=== PATIENT | male | born 1980 | race Caucasian/White ===

== ENCOUNTER 2024-07-01 01:00 | Emergency (ER) | payer BC, SELFPAY ==
[2024-07-01 01:11] VITALS: BP 141/96; PULSE 74; RESP 16; TEMP 36.6; O2SAT 97; BMI 32.1
--- NOTE | 2024-07-01 01:14 | ED.GENADULT ---
HPI - General Adult General Chief complaint: Headache/Migraine Stated complaint: headache, stiff neck Time Seen by Provider: 07/01/24 01:11 CDT History of Present Illness HPI narrative: pt arrives with stiff neck for 3-4 days. now 24 hours of headache on right side with R ear sensitivity. tylenol q4h and advil last at 2100. pain increases with laying down. 44-year-old man presenting to the emergency department concern of headache and neck stiffness. Hurts to flex next to the right in particular. Tenderness though also in his right ear trying to clean at the today. Headache really started somewhat abruptly last night and has continued. He is just not able to sleep and looking for some relief. He describes pain that comes over the right side of his scalp posterior to anterior stopping somewhere in the forehead. Mildly light sensitive. No rashes. Neck pain not entirely unusual bouncing around in [employer] well [place] and having to look about, but headache is what is keeping him awake and concerning. Related Data Home Medications ?Medication ?Instructions ?Recorded ?Confirmed No Known Home Medications 07/01/24 07/01/24 Previous Rx's ?Medication ?Instructions ?Recorded diclofenac sodium 3 % topical gel 1 applic topical BID PRN #100 grams 07/01/24 Allergies Allergy/AdvReac Type Severity Reaction Status Date / Time No Known Drug Allergies Allergy Verified 07/01/24 01:14 CDT Review of Systems Status of ROS: Reports: 6 or more systems reviewed and unremarkable except as noted in History and below [facility] Medical History No significant past medical history Surgical History (Updated 07/01/24 @ 01:56 AWNING HANGER by Salas Patel RN) No significant past surgical history Social History Smoking Status: Never smoker Second hand tobacco smoke exposure: No How often do you have a drink containing alcohol: never AUDIT-C Alcohol total score: 0 Non-prescribed substance use: denies use Exam Narrative: Exam Narrative: Pleasant. Moving his neck stiffly. Subjective pain to rotation to the right more so than the left. Pain about the occipital nerve foramen on the right. Ear canals and TMs are clear. Tense paracervical musculature right greater than left. Heart in regular rate and rhythm. We all extremities without difficulty. Well-perfused. Skin is warm and dry without apparent rash. Oropharynx unremarkable. Const: Vital Signs, click to edit/add: Vital Signs - 24 hr 07/01/24 01:11 CDT 07/01/24 01:56 AWNING HANGER 07/01/24 01:57 AWNING HANGER Temperature 97.8 F 97.8 F 97.8 F Pulse Rate [Pulse Oximeter] 74 78 78 Respiratory Rate 16 16 16 Blood Pressure [Ri ght Upper Arm] 141/96 H 135/85 135/85 Pulse Oximetry 97 97 Oxygen Delivery Me thod Room Air Room Air Documenting provider has reviewed patient's vital signs: yes Course Vital Signs Vital signs: Initial Vital Signs Temperature 97.8 F 07/01/24 01:11 CDT Temperature Source Temporal Artery Scan 07/01/24 01:11 CDT Pulse Rate 74 07/01/24 01:11 CDT Respiratory Rate 16 07/01/24 01:11 CDT Blood Pressure 141/96 H 07/01/24 01:11 CDT Blood Pressure Mean 111 H 07/01/24 01:11 CDT Blood Pressure Position Sitting 07/01/24 01:11 CDT Pulse Oximetry 97 07/01/24 01:11 CDT Oxygen Delivery Method Room Air 07/01/24 01:11 CDT Vital Signs Temperature 97.8 F 07/01/24 01:11 CDT Pulse Rate 74 07/01/24 01:11 CDT Respiratory Rate 16 07/01/24 01:11 CDT Blood Pressure 141/96 H 07/01/24 01:11 CDT Pulse Oximetry 97 07/01/24 01:11 CDT Oxygen Delivery Method Room Air 07/01/24 01:11 CDT Temperature 97.8 F 07/01/24 01:57 AWNING HANGER Pulse Rate 78 07/01/24 01:57 AWNING HANGER Respiratory Rate 16 07/01/24 01:57 AWNING HANGER Blood Pressure 135/85 07/01/24 01:57 AWNING HANGER Pulse Oximetry 97 07/01/24 01:56 AWNING HANGER Oxygen Delivery Method Room Air 07/01/24 01:56 AWNING HANGER Medications Administered Medications: Discontinued Medications Generic Name Dose Route Start Last Admin Trade Name Freq PRN Reason Stop Dose Admin Bupivacaine HCl 30 ml 07/01/24 01:25 AWNING HANGER 07/01/24 02:30 Bupivacaine 0.25% 30 Ml INJECTION 07/01/24 01:26 AWNING HANGER 30 ml ONCE ONE Administration Lidocaine 1 patch 07/01/24 01:13 AWNING HANGER 07/01/24 01:30 CDT Lidocaine 5% Patch TRANSDERMA 07/01/24 01:14 AWNING HANGER 1 patch ONCE ONE Administration Protocol Medical Decision Making MDM Narrative Medical decision making narrative: I suspect some of what he is feeling in his ears related to surrounding muscle tension. Given distribution of his headache I would test with occipital nerve block/anesthetic and reassess need for further cares. Certainly meningitis is in differential though other than the headache and then neck soreness which I think has more of a musculoskeletal origin, does not have meningeal signs. Could have had bleed otherwise but would reassess after occipital nerve block. No history of recurrent headaches or nighttime waking with headaches otherwise or other red flags to suggest more indolent intracranial process. Is in agreement to trial occipital nerve injection. Risks and benefits were discussed. Injected 2 mL of bupivacaine about the right occipital nerve foramen. On reassessment headache has markedly improved at least since bupivacaine injection about the right side occipital nerve. I think this suggests musculoskeletal origin to headache and neck pain. Still with neck pain which he says does flare from time to time not entirely dissimilar. Discussed further cares where he would accept a lidocaine patch placed at the right neck. He thinks he can sleep at this point and would like to go home See patient discharge plan for further discussion Discharge Plan Discharge Clinical Impression: Occipital neuralgia of right side, Neck pain Additional Instructions: Stay well-hydrated. In addition to the neck pull-downs few times daily as demonstrated, see handout on stretches for the upper back musculature which might be beneficial. If you think this lidocaine patch is helpful, you can purchase more [id number]. I am also sending in a prescription of NSAID gel (diclofenac) Also a prednisone course from [email or web address]. Prescriptions: New diclofenac sodium 3 % gel 1 applic topical BID PRNQty: 100 0RF No Action No Known Home Medications Follow Up/Referrals: Cecilia Galeano MD [Staff Physician] - Stand Alone Forms: [employer] Info Instructions
[2024-07-01] MEDS: LIDOCAINE 5% PATCH 1 PATCH TRANSDERMA (01:30)
[2024-07-01 01:56] VITALS: BP 135/85; PULSE 78; RESP 16; TEMP 36.6; O2SAT 97
[2024-07-01 01:57] VITALS: BP 135/85; PULSE 78; RESP 16; TEMP 36.6
[2024-07-01] MEDS: BUPIVACAINE 0.25% 30 ML INJECTION (02:30)
== END 2024-07-01 01:57 | disposition home or self-care (01) ==
PROVIDERS: Emergency Provider Family Medicine
DX: M54.81 Occipital neuralgia (principal)
CPT/HCPCS: 64405; 99283; 99284; A9270; J0665